=== PATIENT | male | born 1955 | race Caucasian/White ===

== ENCOUNTER 2016-04-27 07:25 | Inpatient (IN) ==
[2016-04-27] MEDS ORDERED: VALIUM PO ONE (08:21)
[2016-04-27] MEDS ORDERED: NS 1,000 ML IV ONE ×2 (08:22→10:27)
[2016-04-27 09:00] LABS: MANUAL DIFF NEEDED? NO
[2016-04-27 09:15] LABS: BASO% 0.2 % (0.0-0.8); EOS# 0.21 X1000 (0.0-0.7); EOS% 2.4 % (0.0-10.0); HEMATOCRIT 38.2 % (42.0-52.0); HEMOGLOBIN 13.8 g/dL (14.0-18.0); IMM GRAN# 0.02 X1000 (0.0-0.04); IMM GRAN% 0.2 % (0.0-0.5); MCH 32.2 PG (27-31); MCHC 36.1 g/dL (33-37); MONO# 1.37 X1000 (0.11-0.59); MONO% 15.4 % (1.7-9.3); MPV 9.2 FL (7.4-10.4); NEUT% 72.8 % (42.2-75.2); PLT 186 X1000 (130-400); RBC 4.29 XMIL (4.7-6.1)
--- NOTE | 2016-04-27 09:20 | PROVIDER DOCUMENTATION ---
HPI-Abdominal Pain/GI Problem <Umm Sheridan - Last Filed: 04/27/16 09:40> - General Source: patient - History of Present Illness-ABD Nature of Presenting Problems: pt states epigastric and ruq pain since last night under a lot of stress at home states his is sick and he does not have any help also states his only medical problem is hypertension his pressure has been very high as well. pt states 1 episode of vomiting no sob. dr dennis is his pmd Abdominal Pain Onset Location: reports: LUQ, epigastric Pain Radiation: reports: no radiation Quality of Pain: reports: burning Onset/Duration: reports: 24 hours ago Timing: reports: still present, constant Activities at Onset: reports: other (after he ate some taco campbell his daughter brought to him last night) Exposure to sick contacts?: No Modifying Factors: improves with: nothing Associated Symptoms: reports: anxiety, nausea, vomiting Last BM: 24 hours ago Dark Stools Present?: reports: none noticed Rectal Bleeding: reports: none <Adrienne England - Last Filed: 05/01/16 11:45> - General Chief Complaint: Epigastric Pain Stated Complaint: CP Time Seen by Provider: 04/27/16 08:06 Allergies/Adverse Reactions: Patient Allergies Allergy/AdvReac Type Severity Reaction Status Date / Time No Known Allergies Allergy Verified 06/07/15 09:17 Home Medications: Home Medication List Medication Instructions Recorded Confirmed Last Taken Type Zolpidem Tartrate [Ambien] 10 mg PO QHS PRN 06/07/15 04/27/16 Unknown History Labetalol [Trandate] 400 mg PO Q12H #60 tablet 06/13/15 04/27/16 Unknown Rx Minoxidil [Loniten] 10 mg PO BID #60 tablet 06/13/15 04/27/16 Unknown Rx Clonidine [Catapres] 0.3 mg PO BID 04/27/16 04/27/16 Unknown History Chlordiazepoxide [Librium] 25 mg PO TID #30 capsule 05/01/16 Unknown Rx Clonidine [Catapres] 0.2 mg PO TID PRN PRN #0 tablet 05/01/16 Unknown Rx Nifedipine E.r. [Adalat cc] 30 mg PO DAILY #30 tablet 05/01/16 Unknown Rx Review of Systems - Adult - REVIEW OF SYSTEMS - ADULT Constitutional: reports: see HPI Eyes: reports: no symptoms reported Ears, Nose, Mouth & Throat: reports: no symptoms reported Cardiovascular: reports: no symptoms reported Respiratory: reports: no symptoms reported Gastrointestinal: reports: see HPI Genitourinary: reports: no symptoms reported Musculoskeletal: reports: no symptoms reported Integumentary: reports: no symptoms reported Neurological: reports: no symptoms reported Psychiatric: reports: anxiety, panic attacks Endocrine: reports: no symptoms reported Hematologic/Lymphatic: reports: no symptoms reported Allergic/Immunologic: reports: no symptoms reported All Other Systems: Reviewed and Negative <CarrhiannonPollo carrilloZehra LilliBaltazar - Last Filed: 05/01/16 11:45> Past History - Adult - PAST MEDICAL HISTORY-ADULT Review of Records: reports: Old Records Reviewed, Nursing Assessment Review, Medications Reviewed Cardiovascular: reports: HTN Respiratory: reports: denies history Gastrointestinal: reports: denies history Genitourinary: reports: denies history Musculoskeletal: reports: denies history Neurological: reports: denies history Psychiatric: reports: denies history Endocrine/Immune: reports: denies history - SOCIAL HISTORY Smoking: denies Substance Use: none/never Alcohol Use Frequency: never Living Situation: family <Pollo EnglandRazLily Jazz - Last Filed: 05/01/16 11:45> Physical Exam-General - PHYSICAL EXAM-ADULT Initial Vital Signs Reviewed: Yes - CONSTITUTIONAL General Appearance: alert, no apparent distress, anxious - EYES Eyes: PERRL/EOMI, pink conjunctivae - HEAD, EARS, NOSE, MOUTH & THROAT HENMT: moist mucous membranes, other (abrasion to forehead states he hit his forehead 3 days ago after taking too much clonidine) - NECK Neck: supple - RESPIRATORY Respiratory: chest non-tender, lungs clear, normal breath sounds, no pleuratic chest pain, no respiratory distress, no accessory muscle use - CARDIOVASCULAR Cardiovascular: normal peripheral pulses, regular rate, rhythm, tachycardia - CHEST (BREASTS) Chest/Breast: no tenderness - GASTROINTESTINAL (ABDOMEN) Abdominal Exam: soft, no organomegaly, tenderness (epigastric and luq) - LYMPHATIC Lymphatic: no adenopathy - MUSCULOSKELETAL Back Exam: normal inspection, no CVA tenderness, no vertebral tenderness Extremity: normal range of motion, non-tender, normal gait, normal inspection, no pedal edema, no calf tenderness - SKIN Integumentary: normal color, normal turgor, warm/dry - NEUROLOGIC Neurologic: grossly normal - PSYCHIATRIC Psych/Mental Status: anxious, other (pressured speach emotionally labile tearful when talking about his ) <Adrienne England - Last Filed: 05/01/16 11:45> Progress - EKG 1 Time of EKG reading by physician:: 07:32 EKG Read and Signed by:: Adrienne England EKG Interpretation (*Must complete 3 of following elements*): Normal Rate: 117 Rhythm: sinus tachycardia <Umm Sheridan - Last Filed: 04/27/16 09:40> - PLAN OF CARE/RESULTS Progress/Plan/Lab Results: will check labs pt recently took clonidine before coming in will recheck vital signs prior to giving meds. valium for anxiety labs and ct to eval abd pain Laboratory Results - last 24 hr 04/27/16 04/27/16 04/27/16 08:41 08:41 08:41 WBC RBC Hgb Hct MCV MCH MCHC RDW Std Deviation Plt Count MPV Immature Gran % (Auto) Neut % (Auto) Lymph % (Auto) Meagher % (Auto) Eos % (Auto) Baso % (Auto) Immature Gran # (Auto) Neut # (Auto) Lymph # (Auto) Meagher # (Auto) Eos # (Auto) Baso # (Auto) Sodium 135 L Potassium 3.7 Chloride 94 L Carbon Dioxide 27 Anion Gap 14 BUN 16 Creatinine 1.1 Estimated GFR/1.73 m2 > 60 BUN/Creatinine Ratio 15 Glucose 149 H Calculated Osmolality 274 Calcium 10.0 Total Bilirubin 0.50 AST 32 ALT 22 Alkaline Phosphatase 68 Creatine Kinase 60 Troponin T < 0.010 Total Protein 7.8 Albumin 3.7 Globulin 4.1 Albumin/Globulin Ratio 0.9 Amylase 112 Lipase 259 H Urine Source Urine Color Urine Turbidity Urine pH Ur Specific [place] Urine Protein Ur Glucose (Stick) Ur Ketones (Stick) Urine Blood Urine Nitrite Urine Bilirubin Urobilinogen Dipstick Urine Leukocytes Urine WBC (Auto) Urine RBC (Auto) U Epithel Cells (Auto) Urine Bacteria (Auto) 04/27/16 04/27/16 08:41 09:55 WBC 8.91 RBC 4.29 L Hgb 13.8 L Hct 38.2 L MCV 89.0 MCH 32.2 H MCHC 36.1 RDW Std Deviation 11.4 L Plt Count 186 MPV 9.2 Immature Gran % (Auto) 0.2 Neut % (Auto) 72.8 Lymph % (Auto) 9.0 L Meagher % (Auto) 15.4 H Eos % (Auto) 2.4 Baso % (Auto) 0.2 Immature Gran # (Auto) 0.02 Neut # (Auto) 6.49 Lymph # (Auto) 0.80 L Meagher # (Auto) 1.37 H Eos # (Auto) 0.21 Baso # (Auto) 0.02 Sodium Potassium Chloride Carbon Dioxide Anion Gap BUN Creatinine Estimated GFR/1.73 m2 BUN/Creatinine Ratio Glucose Calculated Osmolality Calcium Total Bilirubin AST ALT Alkaline Phosphatase Creatine Kinase Troponin T Total Protein Albumin Globulin Albumin/Globulin Ratio Amylase Lipase Urine Source CLEAN CATCH Urine Color YELLOW Urine Turbidity CLEAR Urine pH 5.5 Ur Specific [place] 1.010 Urine Protein TRACE A Ur Glucose (Stick) NEGATIVE Ur Ketones (Stick) NEGATIVE Urine Blood NEGATIVE Urine Nitrite NEGATIVE Urine Bilirubin NEGATIVE Urobilinogen Dipstick NORMAL Urine Leukocytes NEGATIVE Urine WBC (Auto) <10 Urine RBC (Auto) <10 U Epithel Cells (Auto) <10 Urine Bacteria (Auto) NEGATIVE pt with pancreatitis pt pending results of ct scan <Adrienne England - Last Filed: 05/01/16 11:45> Departure <Umm Sheridan - Last Filed: 04/27/16 09:40> - Departure Time of Disposition Order: 11:45 Certified Medical Emergency: Emergent <Adrienne England - Last Filed: 05/01/16 11:45> - Departure DIAGNOSIS: Pancreatitis Qualifiers: Chronicity: acute Pancreatitis type: unspecified pancreatitis type Acute pancreatitis complication: no infection or necrosis Qualified Code(s): K85.90 - Acute pancreatitis without necrosis or infection, unspecified Disposition: ADMITTED INPATIENT 09 Condition: Stable Physician Attestation
[2016-04-27 09:26] LABS: AGAP 14; ALBUMIN 3.7 g/dL (3.5-5.0); ALKALINE PHOSPHATASE 68 U/L (32-122); AMYLASE 112 U/L (20-200); BUN 16 mg/dL (8-22); CHLORIDE 94 mmol/L (98-107); COSMO 274; GOT 32 U/L (10-34); GPT 22 U/L (10-44); LIPASE 259 U/L (13-60); POTASSIUM 3.7 mmol/L (3.5-5.1); SODIUM 135 mmol/L (136-145); TCO2 27 mmol/L (25-35); TOTAL PROTEIN 7.8 g/dL (6.3-8.3)
[2016-04-27 09:56] LABS: URINE CULTURE NEEDED? NO; URINE MICRO REVIEW NEEDED? NO; URINE SOURCE CLEAN CATCH
[2016-04-27 10:20] LABS: BILIRUBIN URINE NEGATIVE (NEGATIVE); BLOOD URINE NEGATIVE (NEGATIVE); COLOR YELLOW; GLUCOSE URINE NEGATIVE (NEGATIVE); LEUKOCYTES URINE NEGATIVE (NEGATIVE); NITRITE URINE NEGATIVE (NEGATIVE); PH URINE 5.5; PROTEIN URINE TRACE mg/dL (NEGATIVE); TURBIDITY URINE CLEAR (CLEAR); UROBILINOGEN URINE NORMAL (NORMAL)
[2016-04-27 10:21] LABS: UR EPITHELIAL CELLS <10 /HPF (<10); URINE BACTERIA NEGATIVE /HPF; URINE RBC <10 /HPF (<10); URINE WBC <10 /HPF (<10)
[2016-04-27] MEDS ORDERED: PEPCID IV ONE (10:27)
[2016-04-27] MEDS ORDERED: SODIUM CHLORIDE 0.9% INJ ONE ×2 (10:27→14:56)
[2016-04-27] MEDS ORDERED: TORADOL IV ONE (10:27)
[2016-04-27] MEDS ORDERED: CATAPRES PO ONE (11:06)
--- NOTE | 2016-04-27 11:19 | Diag Imaging Result Document ---
PROCEDURE NAME: CT ABD/PELVIS W/ IV CONT ONLY - 04/27/2016 CT ABDOMEN AND PELVIS WITH IV CONTRAST: COMPARISON: Renal artery CTA dated 06/08/2015. FINDINGS: There is mild subsegmental atelectasis at the lung bases. There are extensive inflammatory changes surrounding the tail of the pancreas consistent with acute pancreatitis. There is a small amount of loculated fluid tracking around the tail of the pancreas. No definite peripancreatic abscess is identified. The gallbladder is unremarkable, and there is no evidence of significant biliary dilatation. The pancreatic duct does not appear to be dilated. There is no evidence of splenic vein or portal vein thrombosis. No splenic artery pseudoaneurysm is appreciated. There is no pseudocyst cyst. There is a stable cyst involving the right kidney with dense calcification at its periphery. The kidneys are essentially unremarkable, otherwise. There is a small diverticulum arising from the dome of the urinary bladder with a calcification at its periphery. There is a large amount of stool in the rectum suggesting a rectal fecal impaction. The diameter of the impacted rectum is up to 7.1 cm. There is no evidence of bowel obstruction. The remainder of the solid viscera of the abdomen and pelvis and the remainder of the GI tract is essentially unremarkable. IMPRESSION: 1. Acute pancreatitis involving the tail of the pancreas as described. 2. Rectal fecal impaction. 3. Other incidental/nonacute findings detailed above.
[2016-04-27] MEDS ORDERED: ZOFRAN IV PRN (14:56)
[2016-04-27] MEDS: LOVENOX SUBQ SCH (16:37)
[2016-04-27] MEDS: PROTONIX IV SCH (16:37)
[2016-04-27] MEDS: NS 1,000 ML IV SCH (17:09)
[2016-04-27] MEDS: HUMALOG SUBQ SCH ×2 (17:09→22:13)
--- NOTE | 2016-04-27 17:55 | HISTORY AND PHYSICAL ---
PRIMARY CARE PHYSICIAN: Jazz Abbott MD CHIEF COMPLAINT: Abdominal pain, nausea. HISTORY OF PRESENT ILLNESS: A 61-year-old, white male with past medical history significant for hypertension, situational depression/anxiety, and insomnia, presents for evaluation of above- mentioned symptoms. Current history of present illness began last week. At that time, patient developed intermittent abdominal discomfort with associated nausea. The patient states that this lasted for several days and ultimately culminated with an episode of vomiting. The patient took Phenergan and Prilosec with improvement. The patient states he did reasonably well until yesterday. At approximately 1 p.m., his symptoms returned. These included epigastric and chest pain and fatigue. He denied nausea, vomiting, diarrhea, or constipation. Over the course of the last 24 hours, patient's symptoms have increased. The patient ultimately presented to the emergency department for further evaluation and management. Upon arrival, a full evaluation revealed underlying pancreatitis. Patient will be admitted to the hospital for full evaluation and management of this condition. Of note, patient's blood pressure has intermittently been elevated. He has had a decrease in his appetite. He denies change in alcohol consumption, although this remains moderate. He does not have a history of gallstones to his knowledge. PAST MEDICAL HISTORY: 1. Hypertension. 2. Situational anxiety and depression, largely secondary to caring for his who is suffering from Guillain-Houlka. 3. Insomnia. PAST SURGICAL HISTORY: Patient has a history of a tonsillectomy with adenoidectomy, cervical fusion, and arthroscopy of the right knee. CURRENT MEDICATIONS: The patient is unsure as to his medications. His daughter will retrieve those from home. To his knowledge, he takes clonidine, lisinopril, metoprolol ER, as-needed Ambien, Zoloft, minoxidil, and losartan therapy. ALLERGIES: Patient answered no known drug allergies. SOCIAL HISTORY: Patient is retired from [employer]. He denies tobacco or illicit drug use. He drinks approximately 4-5 beers per day. FAMILY HISTORY: Patient's mother passed in her early 70's secondary to complications of respiratory failure. She had a history of COPD. Patient's father passed at an unknown age. His history was largely unknown. REVIEW OF SYSTEMS: A 12 point review of systems was performed. Pertinent positives and negatives noted in history present illness. PHYSICAL EXAMINATION: VITAL SIGNS: Temperature 97.3 degrees, heart rate 72, respirations 15, blood pressure is 137/97. GENERAL: Well nourished, well developed, in no acute distress. HEENT: Normocephalic, atraumatic. Pupils equal, round, reactive to light. Extraocular muscles intact. Sclerae anicteric. [place] conjunctivae. Oral and nasopharynx clear without exudate. NECK: Supple. No lymphadenopathy. No thyromegaly. No bruits auscultated. CARDIOVASCULAR: Regular rate and rhythm. No significant murmurs, rubs, or gallops. PULMONARY: Clear to auscultation bilaterally. ABDOMEN: Soft, diffusely tender, worse in the epigastric region with voluntary guarding. No rebound. Positive bowel sounds. EXTREMITIES: Moves all extremities well. No significant clubbing, cyanosis, or edema. NEUROLOGIC: Cranial nerves 2 through 12 grossly intact. Motor and sensory grossly intact. PSYCHOLOGIC: Examination is appropriate. LABORATORY DATA: White blood cell count 8.91, hemoglobin 13.8, hematocrit 38.2, platelet count 186,000. Sodium 135, potassium 3.7, chloride 94, bicarb 27, BUN 16, creatinine 1.1, glucose 149, calcium 10. Total bilirubin 0.50. Total protein 7.8, albumin 3.7, alkaline phosphatase 68, AST 32, ALT 22, CK total 60. Troponin less than 0.010. Amylase 112, lipase 259. Urinalysis revealed only trace protein. IMAGING: CT scan of the abdomen and pelvis revealed acute pancreatitis involving the tail of the pancreas. Rectal fecal impaction. ASSESSMENT AND PLAN: A 61-year-old, white male with past medical history as noted presents for evaluation of abdominal discomfort. Laboratory data and CT findings are consistent with acute pancreatitis. Patient's risk factors include moderate alcohol intake. He does have an intact gallbladder. Patient will be admitted to the hospital for full evaluation and management of this condition. 1. Admit to General Medicine. 2. Pancreatitis-differential diagnosis includes alcohol induced pancreatitis, gallstone pancreatitis, and medication induced. We will place patient nothing per oral. We will start patient on aggressive hydration. We will cover patient's pain with pain IV pain medications and nausea with IV antiemetics. We will schedule an abdominal ultrasound in the morning to rule out underlying gallstones. We will continue supportive care. 3. Hypertension-patient historically has demonstrated impressive hypertension. He is unsure as to his current medications. I have asked patient's daughter to retrieve those medications. We will continue that and monitor his pressures closely while hospitalized. 4. Depression/stress-this appears to be significant. Patient states caring for his with Guillain-Houlka has been quite taxing. He did discuss that he is using alcohol at least partially for self-medication. For now, we will continue his Zoloft therapy once the dose is confirmed. We will defer further management to Dr. Abbott. 5. Hyperglycemia-patient's blood sugar is noted to be elevated today. Question is raised whether this is a chronic condition or acute secondary to pancreatitis. We will cover patient with sliding scale insulin. This will be followed. 6. Moderate to significant alcohol consumption-we will follow patient clinically while hospitalized and monitor for any evidence of withdrawal. 7. Fecal impaction-this was noted per computed tomography scan. Patient denies significant symptoms at present time. For now, we will follow this. 8. Fluid electrolytes nutrition-we will monitor electrolytes, normal saline at 100 mL an hour, nothing per oral prophylaxis. Patient will be placed on subcutaneous Lovenox.
[2016-04-27] MEDS: DEMEROL IV PRN ×2 (19:10→23:08)
[2016-04-28] MEDS: NS 1,000 ML IV SCH (03:15)
[2016-04-28] MEDS: DEMEROL IV PRN ×5 (03:16→22:44)
[2016-04-28 06:17] LABS: MANUAL DIFF NEEDED? NO
[2016-04-28 06:22] LABS: BASO% 0.4 % (0.0-0.8); EOS# 0.14 X1000 (0.0-0.7); EOS% 1.9 % (0.0-10.0); HEMATOCRIT 34.7 % (42.0-52.0); HEMOGLOBIN 12.4 g/dL (14.0-18.0); IMM GRAN# 0.02 X1000 (0.0-0.04); IMM GRAN% 0.3 % (0.0-0.5); LYMPH# 1.14 X1000 (1.2-3.4); LYMPH% 15.2 % (20.5-51.1); MCH 32.2 PG (27-31); MCHC 35.7 g/dL (33-37); MCV 90.1 FL (81-99); MONO# 1.31 X1000 (0.11-0.59); MONO% 17.4 % (1.7-9.3); NEUT% 64.8 % (42.2-75.2); PLT 187 X1000 (130-400); RBC 3.85 XMIL (4.7-6.1)
[2016-04-28 06:34] LABS: AGAP 17; ALBUMIN 2.8 g/dL (3.5-5.0); ALKALINE PHOSPHATASE 56 U/L (32-122); AMYLASE 107 U/L (20-200); BUN 13 mg/dL (8-22); CALCIUM 8.2 mg/dL (8.8-10.2); CHLORIDE 96 mmol/L (98-107); COSMO 274; GOT 22 U/L (10-34); GPT 19 U/L (10-44); LIPASE 239 U/L (13-60); POTASSIUM 3.5 mmol/L (3.5-5.1); SODIUM 137 mmol/L (136-145); TCO2 24 mmol/L (25-35); TOTAL PROTEIN 6.8 g/dL (6.3-8.3)
--- NOTE | 2016-04-28 07:06 | EKG Report ---
Test Performed on : 04/27/2016 07:32:23 AM Test Reason : CHEST PAIN Blood Pressure : / mmHG Vent. Rate : 117 BPM Atrial Rate : 117 BPM P-R Int : 146 ms QRS Dur : 094 ms QT Int : 334 ms P-R-T Axes : 028 010 036 degrees QTc Int : 465 ms Sinus tachycardia. Possible Left atrial enlargement Borderline ECG When compared with ECG of 07-JUN-2015 09:20, Vent. rate has increased BY 42 BPM Nonspecific T wave abnormality has replaced inverted T waves in Inferior leads Unconfirmed Result
[2016-04-28] MEDS: HUMALOG SUBQ SCH ×4 (07:56→20:43)
[2016-04-28] MEDS: CATAPRES PO PRN (08:24)
--- NOTE | 2016-04-28 09:12 | Diag Imaging Result Document ---
PROCEDURE NAME: US ABDOMEN-COMPLETE - 04/28/2016 COMPLETE ABDOMINAL ULTRASOUND: COMPARISON: None available. FINDINGS: No gallstones are identified. The gallbladder wall is perhaps marginally thickened measuring up to 4 mm. However, it is also likely partially contracted, which could account for this. The common bile duct is normal in diameter. Sonographic Kapoor's sign was reported to be negative. The pancreas is largely obscured. The pancreatic head is grossly unremarkable. There is known acute pancreatitis involving the tail of the pancreas, which cannot be seen on this study. The liver, aorta, and IVC are grossly unremarkable. There is a 2.1-cm cyst with calcification at its border involving the superior right kidney. This is also noted on previous CTs. The kidneys are grossly unremarkable, otherwise. IMPRESSION: 1. Minimal thickening of the gallbladder wall that is probably due to partial contraction. No gallstones, biliary dilatation, or pericholecystic fluid is identified. 2. Small cyst involving the right kidney with mural calcification that can also be seen on prior CT.
[2016-04-28] MEDS: LIBRIUM PO SCH ×3 (11:24→22:44)
[2016-04-28] MEDS: NORVASC PO SCH (11:24)
[2016-04-28] MEDS: LONITEN PO SCH ×2 (11:24→20:42)
[2016-04-28] MEDS: TRANDATE PO SCH ×2 (11:24→20:42)
[2016-04-28] MEDS: D5 NS + KCL 20 MEQ 1,000 ML IV SCH ×2 (11:35→20:43)
[2016-04-28] MEDS ORDERED: SODIUM CHLORIDE 0.9% 10 ML ONE (11:39)
--- NOTE | 2016-04-28 12:00 | PROGRESS NOTE ---
DATE: 04/28/2016 SUBJECTIVE: Mr. Teran was admitted to [facility] with acute pancreatitis. He continues with persistent epigastric and right upper quadrant abdominal pain with nausea and dry heaves. He reports that his abdominal pain is generally well controlled on Demerol. An ultrasound of the abdomen demonstrated minimal thickening of the gallbladder wall due to partial contraction. No gallstones, biliary dilatation, or pericholecystic fluid was identified. CT demonstrated pancreatitis of the tail of the pancreas. No pancreatic masses were noted. His blood pressure has been fluctuating. Systolic blood pressures have ranged from 175-204, whereas his diastolic blood pressures have been in the 90s. He denies any chest pain, palpitations, or anginal equivalents. OBJECTIVE: Vital signs: Temperature 98.4 degrees, pulse 89, respirations 18, BP 204/98. CV: Regular rate and rhythm. Lungs: Clear. Abdomen: Mild epigastric and right upper quadrant tenderness to deep palpation. No rebound or guarding. He has good bowel sounds. ASSESSMENT AND PLAN: 1. Acute pancreatitis. The ultrasound of his gallbladder showed no gallstones. Certainly he could have acalculous cholecystitis. We will most likely need to check a HIDA scan with CCK once the pancreatitis has resolved. In the meantime, we will continue him NPO except for medicines, rehydrate him with fluids, and we will use Demerol for pain. I will recheck an amylase and lipase in the morning. 2. Hypertension. His blood pressure has always been very brittle and tends to fluctuate. His blood pressure was elevated this morning. I am going to resume his regular home medications and monitor his blood pressure closely. 3. Ethanol abuse. He has significantly cut down on his alcohol consumption. He drinks at least a 4 pack of beer per day. I am going to begin Librium for DT prophylaxis.
[2016-04-28] MEDS: PROTONIX IV SCH (15:20)
[2016-04-28] MEDS: LOVENOX SUBQ SCH (15:21)
[2016-04-29] MEDS: AMBIEN PO PRN ×2 (00:22→22:36)
[2016-04-29] MEDS: D5 NS + KCL 20 MEQ 1,000 ML IV SCH ×3 (05:21→22:41)
[2016-04-29] MEDS: LIBRIUM PO SCH ×4 (05:21→22:36)
[2016-04-29] MEDS: HUMALOG SUBQ SCH ×4 (06:23→21:09)
[2016-04-29 06:33] LABS: AGAP 11; ALBUMIN 2.9 g/dL (3.5-5.0); ALKALINE PHOSPHATASE 51 U/L (32-122); AMYLASE 85 U/L (20-200); BUN 7 mg/dL (8-22); CALCIUM 7.7 mg/dL (8.8-10.2); CHLORIDE 99 mmol/L (98-107); COSMO 273; GOT 13 U/L (10-34); GPT 14 U/L (10-44); LIPASE 201 U/L (13-60); POTASSIUM 3.5 mmol/L (3.5-5.1); SODIUM 135 mmol/L (136-145); TCO2 25 mmol/L (25-35); TOTAL BILIRUBIN 0.28 mg/dL (0.20-1.00); TOTAL PROTEIN 5.7 g/dL (6.3-8.3)
[2016-04-29] MEDS: DEMEROL IV PRN ×3 (07:41→21:09)
[2016-04-29] MEDS: NORVASC PO SCH (08:09)
[2016-04-29] MEDS: TRANDATE PO SCH ×2 (08:10→21:08)
[2016-04-29] MEDS: LONITEN PO SCH ×2 (08:10→21:08)
[2016-04-29] MEDS: THIAMINE 100 MG in NS 50 ML IV SCH (11:21)
[2016-04-29] MEDS ORDERED: SODIUM CHLORIDE 0.9% 10 ML ONE (13:49)
[2016-04-29] MEDS: PROTONIX IV SCH (14:21)
[2016-04-29] MEDS: LOVENOX SUBQ SCH (14:22)
--- NOTE | 2016-04-29 14:24 | PROGRESS NOTE ---
DATE: 04/29/2016 SUBJECTIVE: Mr. Teran was admitted to [facility] with acute pancreatitis. Clinically, he feels better this morning. He is having less abdominal discomfort and denies any further nausea or vomiting. He is requiring less Demerol for pain control. He reports that he is feeling hungry and wants to try something to eat. His blood pressure is trending down. This morning, his blood pressure was 159/70. He denies any chest pain, palpitations, or anginal equivalents. OBJECTIVE: Vital signs: Temperature 98.3 degrees, pulse 79, respirations 18, BP 159/70. Cardiovascular: Regular rate and rhythm. Abdomen: Mild epigastric tenderness to deep palpation. No rebound or guarding. He has good bowel sounds. LABORATORY DATA: Electrolytes demonstrate the following: Sodium 135, potassium 3.5, chloride 99, BUN 7, creatinine 0.8, glucose 191, amylase 85, lipase 201. ASSESSMENT AND PLAN: 1. Acute pancreatitis. The ultrasound of the gallbladder demonstrated no gallstones. Clinically, he continues to improve. I am going to begin clear liquids and advance his diet as tolerated. We will also check triglycerides. Elevated triglycerides certainly can cause pancreatitis. 2. Hypertension. His blood pressure is trending down. We will continue his current regimen of medications. 3. Alcohol abuse. We will continue Librium and D5W for DVT prophylaxis.
[2016-04-29] MEDS: CATAPRES PO PRN (16:30)
[2016-04-30] MEDS: LIBRIUM PO SCH ×4 (06:14→20:32)
[2016-04-30] MEDS: HUMALOG SUBQ SCH ×4 (06:15→20:56)
[2016-04-30] MEDS: D5 NS + KCL 20 MEQ 1,000 ML IV SCH ×5 (06:16→20:31)
[2016-04-30] MEDS: DEMEROL IV PRN ×4 (06:54→20:32)
[2016-04-30] MEDS: LONITEN PO SCH ×2 (09:24→20:31)
[2016-04-30] MEDS: TRANDATE PO SCH ×2 (09:24→20:31)
[2016-04-30] MEDS: NORVASC PO SCH (09:24)
[2016-04-30] MEDS: THIAMINE 100 MG in NS 50 ML IV SCH (10:56)
[2016-04-30] MEDS ORDERED: SODIUM CHLORIDE 0.9% 10 ML ONE (13:31)
[2016-04-30] MEDS: LOVENOX SUBQ SCH (15:21)
[2016-04-30] MEDS: PROTONIX IV SCH (15:22)
[2016-04-30] MEDS: ADALAT CC PO SCH (17:31)
--- NOTE | 2016-04-30 17:32 | PROGRESS NOTE ---
DATE: 04/30/2016 SUBJECTIVE: Mr. Teran was admitted to [facility] with acute pancreatitis. Clinically he continues to improve. His abdominal pain continues to improve significantly. He is requiring less and less pain medicine. He tolerated clear liquids without nausea, vomiting, or worsening abdominal pain. His lipase dropped to 169. His blood pressure is still fluctuating at times. He denies any chest pain, palpitations, or anginal equivalents. OBJECTIVE: Vital signs: Temperature 98.5, pulse 86, respirations 20, blood pressure 186/86. Cardiovascular: Regular rate and rhythm. Lungs: Clear. Abdomen: Mild epigastric tenderness to deep palpation. No rebound or guarding. ASSESSMENT AND PLAN: 1. Acute pancreatitis. Clinically he is doing better. He is tolerating a clear liquid diet without nausea, vomiting, or worsening abdominal pain. I will advance him to a gastrointestinal soft diet. 2. Hypertension. Blood pressure is too high. I am going to stop the amlodipine. I will begin Adalat CC 30 mg b.i.d.
[2016-04-30] MEDS: AMBIEN PO PRN (20:31)
[2016-05-01] MEDS: CATAPRES PO PRN (00:16)
[2016-05-01] MEDS: LIBRIUM PO SCH ×2 (04:44→04:45)
[2016-05-01] MEDS: D5 NS + KCL 20 MEQ 1,000 ML IV SCH (04:44)
[2016-05-01] MEDS: HUMALOG SUBQ SCH (06:47)
[2016-05-01 07:58] VITALS: BP 142/73
[2016-05-01] MEDS: DEMEROL IV PRN (08:49)
[2016-05-01] MEDS: ADALAT CC PO SCH (08:50)
[2016-05-01] MEDS: TRANDATE PO SCH (08:50)
[2016-05-01] MEDS: LONITEN PO SCH (08:51)
--- NOTE | 2016-05-02 15:50 | DISCHARGE SUMMARY ---
ADMISSION DATE: 04/27/2016 DISCHARGE DATE: 05/01/2016 DISCHARGE DIAGNOSES: 1. Acute alcoholic pancreatitis. 2. Essential hypertension. 3. ETOH abuse DISCHARGE INSTRUCTIONS: 1. Return to clinic in 1 week to see me, Dr. Taiwo Abbott. 2. Activity as tolerated. 3. GI soft diet and may advance as tolerated. MEDICATIONS: Minoxidil 10 mg b.i.d., Trandate 400 mg b.i.d., Ambien 10 mg at bedtime p.r.n. insomnia, clonidine 0.3 mg b.i.d., nifedipine 30 mg daily, Librium 25 mg TID DISCHARGE PHYSICAL EXAMINATION: This is a well-developed, well-nourished, 61- year-old gentleman in no apparent distress. He is afebrile. Vital signs are stable. Cardiovascular: Regular rate and rhythm. Lungs: Clear. Abdomen: Soft, nontender, with active bowel sounds. Mr. Romeo Teran was admitted to [facility] with abdominal pain in association with nausea and vomiting. He had an amylase of 112. His lipase was 259. A CT scan of the abdomen and pelvis demonstrated acute pancreatitis involving the tail of the pancreas. The patient was admitted to [facility]. He was initially held n.p.o. and aggressively rehydrated with normal saline. We treated the nausea and vomiting on a p.r.n. basis with Zofran and used Demerol for pain. We performed a followup ultrasound of the gallbladder which demonstrated minimal thickening of the gallbladder wall. No gallstones or biliary dilatation or pericholecystic fluid was identified. While holding him n.p.o. and giving him fluids his abdominal pain improved over time and we were gradually able to wean him off pain medications. We started clear liquid diet and advanced his diet as tolerated. He was tolerating a bland diet without nausea, vomiting, or worsening abdominal pain. At the time of discharge his amylase and lipase had normalized. He has a longstanding history of ETOH abuse. He has been trying to cut down on the amount of drinking. I suspect that his chronic alcohol use was the direct cause of the underlying pancreatitis. We gave him thiamine, D5W and began Librium for DT prophylaxis. He had no evidence of delirium tremens. We will continue Librium as an outpatient and gradually taper him off of the Librium as an outpatient. I believe that he would potentially benefit from professional counseling as an outpatient at [facility]. He does have a longstanding history of hypertension. His blood pressure was quite labile. We made various changes in his blood pressure medicines with stabilization of his blood pressure. Typically we have tried to keep the systolic blood pressures in the 150s and his diastolic blood pressures in the 70s and 80s. Having reached maximum hospital benefit, the patient was discharged in stable condition. MARCK
== END 2016-05-01 10:20 | disposition home or self-care (01) | DRG 439 ==
LOC: ED 07:25 → 4N 07:26
PROVIDERS: ADMIT Internal Medicine; ATTEND Internal Medicine
DX: K85.20 Alcohol induced acute pancreatitis without necrosis or infection (principal); F10.188 Alcohol abuse with other alcohol-induced disorder; I10 Essential (primary) hypertension; F41.9 Anxiety disorder, unspecified; F43.21 Adjustment disorder with depressed mood; G47.00 Insomnia, unspecified; Z98.1 Arthrodesis status; Z79.899 Other long term (current) drug therapy; R73.9 Hyperglycemia, unspecified
CPT/HCPCS: 74177; 76700; 80053; 81001; 82150; 82550; 82948; 83690; 84484; 85025; 93005; 94761; 94799; 96374; 96375; C9113; J1650; J1815; J1885; J2175; J2405; J3411; J7030; J7042; Q9967; S0139; S0028; S0164